=== PATIENT | female | born 1995 | race Caucasian/White ===

== ENCOUNTER 2017-09-29 03:57 | Emergency (ER) | payer OTHER ==
--- NOTE | 2017-09-29 04:22 | EDPHY ---
H & P Stated Complaint: SI-self inflicted cuts Source: Patient Exam Limitations: No limitations - Personal History LMP (Females 10-55): 1-7 Days Ago Current Tetanus Diphtheria and Acellular Pertussis (TDAP): Yes - Medical/Surgical History Hx Asthma: No Hx Chronic Respiratory Disease: No Hx Diabetes: No Hx Cardiac Disease: No Hx Renal Disease: No Hx Cirrhosis: No Hx Alcoholism: No Hx HIV/AIDS: No Hx Splenectomy or Spleen Trauma: No Other PMH: denies - Social History Smoking Status: Never smoked Time Seen by Provider: 09/29/17 04:06 HPI/ROS: HPI The patient presents with self-inflicted left forearm wounds which she sustained about 2 hr prior to presentation when she cut herself with a kitchen knife. Earlier in the evening her boyfriend broke up with her and she was very upset. She says he said a lot of upsetting things about her personality and behavior. She says that she was trying to get an emotional release and did not feel good about herself. She is unable to say as she was trying to commit suicide. She comes in now with 3 lacerations to her left forearm. She says in high school she scraped and cut herself. Then about 2 years ago she scratched her arm during finals. She has seen a psychiatric nurse at [facility] previously though has not established any continuous psychiatric care through a therapist or doctor.. REVIEW OF SYSTEMS Constitutional: No fever, no chills. Eyes: No discharge. ENT: No sore throat. Cardiovascular: No chest pain, no palpitations. Respiratory: No cough, no shortness of breath. Gastrointestinal: No abdominal pain, no vomiting. Genitourinary: No hematuria. Musculoskeletal: No back pain. Skin: No rashes. Neurological: No headache. PMHx: Healthy Soc Hx: College student, denies drug or alcohol use recently, lives alone PHYSICAL General Appearance: Alert, no distress Eyes: Pupils equal and round no pallor or injection ENT, Mouth: Mucous membranes moist Respiratory: There are no retractions, lungs are clear to auscultation Cardiovascular: Regular rate and rhythm Gastrointestinal: Abdomen is soft and non-tender, no masses, bowel sounds normal Neurological: A&O, moves all extremities Skin: Warm and dry, no rashes Musculoskeletal: Neck is supple non tender Extremities: Left anterior forearm with 3 discrete lacerations which are gaping measuring 2.5 cm, 2 cm, 1 cm Psychiatric: Patient is oriented X 3, there is no agitation (Xochitl Pineda) Constitutional: Initial Vital Signs Temperature (C) 36.6 C 09/29/17 04:00 Heart Rate 98 09/29/17 04:00 Respiratory Rate 16 09/29/17 04:00 Blood Pressure 127/84 H 09/29/17 04:00 O2 Sat (%) 96 09/29/17 04:00 O2 Delivery Mode Room Air Allergies/Adverse Reactions: minocycline Allergy (Verified 09/29/17 04:00) Home Medications: Medication Instructions Recorded NK [No Known Home Meds] 09/29/17 Medical Decision Making Procedures: LACERATION REPAIR Procedure: Laceration repair. Verbal consent was obtained from the patient. The linear 2.5 cm laceration on the left forearm was anesthetized using lidocaine with epinephrine. The wound was scrubbed, draped and explored to its base with a gloved finger. There were no deep structures involved. No tendon injury was identified. . The wound was repaired with 4-0 nylon with combination of simple interrupted and horizontal mattress. The wound repair was simple. The procedure was performed by myself. LACERATION REPAIR Procedure: Laceration repair. Verbal consent was obtained from the patient. The linear 2 cm laceration on the left forearm was anesthetized using lidocaine with epinephrine. The wound was scrubbed, draped and explored to its base with a gloved finger. There were no deep structures involved. No tendon injury was identified. . The wound was repaired with combination of 4-nylon simple interrupted and horizontal mattress sutures. The wound repair was simple. The procedure was performed by myself. (Xochitl Pineda) I assumed care of this patient from Dr. Pineda at 7:00 a.m.. At that time mental health evaluation was initiated. Mental health evaluation was completed. She is not felt to be suicidal or homicidal. Referrals are given for her to follow up at [facility] for counseling. She is comfortable with this plan and is discharged home with wound care instructions. Suicide precaution has been discussed with her by the mental health market researcher. Appropriate fall numbers have been provided by the mental health team. (Nanette Chavis) Differential Diagnosis: This is a 22-year-old female with history of self-harm who presents with multiple left wrist lacerations which are self-inflicted in the setting of boyfriend breaking up with her. As she describes sad mood and getting an emotional release is the reason for cutting. She is not clear if she was feeling suicidal. Differential diagnosis includes stress response, suicidal ideation, substance abuse. In the emergency department, her lacerations were repaired. No tendon injury was identified. Labs were checked and were unremarkable except for positive amphetamine screen. When asked about this, she says that she is taking Adderall prescribed by her oven attendant. She was deemed medically clear. When I reassessed her, she admits to some tingling of her left thumb. She has full range of motion, cap refill is brisk, I did not notice any tendon injury on examination of her wounds prior to closure. I suspect when I injected the lidocaine I was close to a branch of her radial nerve and she is having paresthesias from this. I have explained this to her. If her symptoms continue I have referred her to hand specialist for further care. She is in agreement with this. At 7:00 a.m., the case was signed out to the oncoming provider Dr. Chavis pending psychiatric evaluation. (Xochitl Pineda) - Data Points Laboratory Results: Laboratory Results 09/29/17 04:45 09/29/17 04:45 Departure - Departure Disposition: Home, Routine, Self-Care Clinical Impression: Self-inflicted laceration of wrist Condition: Good Instructions: Care For Your Stitches (ED), Suicide Prevention for Adults (ED) Additional Instructions: Your stitches should be removed in 7 days. You can return to the emergency department for this. Please keep the wounds clean and dry and covered with a bandage. I have given you information for the hand specialist to follow up with if you have ongoing tingling of your thumb should be evaluated within the next 1 week. Follow up at [facility] for counseling, as recommended. Referrals: Vic Carrillo MD [Medical Doctor] - As per Instructions [facility] [Clinic] - As per Instructions
[2017-09-29] MEDS ORDERED: SKIN ADHESIVE (DERMABOND) 1 EACH TP ONE (04:53)
[2017-09-29 05:07] LABS: PLATELET COUNT 276 10^3/uL (150-400)
[2017-09-29 07:39] VITALS: BP 125/81
== END 2017-09-29 08:20 | disposition home or self-care (01) ==
PROC: 0HQEXZZ Repair Left Lower Arm Skin, External Approach (ICD-10-PCS; principal; 2017-09-29)
PROC: GZ11ZZZ Psychological Tests, Personality and Behavioral (ICD-10-PCS; 2017-09-29)
DX: S61.512A Laceration without foreign body of left wrist, initial encounter (principal); X78.1XXA Intentional self-harm by knife, initial encounter
CPT/HCPCS: 80305; G0480